=== PATIENT | female | born 1975 | race Caucasian/White ===

== ENCOUNTER 2022-06-14 15:37 | Outpatient (CLI) | payer OTHER, SELFPAY ==
[2022-06-14 11:29] LABS: Albumin* 4.4 g/dL (3.3-5.0); Chloride* 107 mmol/L (96-114); Sodium* 140 mmol/L (135-149)
[2022-06-14 11:31] LABS: Carbon Dioxide* 26 mmol/L (20-32); Cholesterol* 213 mg/dL (90-199); Creatinine* 0.7 mg/dL (0.5-1.5); Estimated Glomerular Filt Rate 107 ml/min
[2022-06-14 11:32] LABS: Alanine Aminotransferase* 19 U/L (4-35); Alkaline Phosphatase* 63 U/L (40-150); Aspartate Amino Transferase* 24 U/L (12-35); Bilirubin Total* 0.6 mg/dL (0.1-1.5); Blood Urea Nitrogen* 18 mg/dL (5-24); Calcium* 9.5 mg/dL (8.4-10.6); Glucose* 95 mg/dL (60-115); HDL Cholesterol* 44 mg/dL (>=50); LDL Cholesterol Calculated 123 mg/dL (<100); Total Protein* 7.1 g/dL (6.0-8.3); Triglycerides* 232 mg/dL (40-149)
== END 2022-06-14 15:38 | disposition home or self-care (01) ==
PROVIDERS: PCP Family Medicine; Visit Provider Family Medicine
DX: Z13.6 Encounter for screening for cardiovascular disorders (principal); Z13.9 Encounter for screening, unspecified
CPT/HCPCS: 80053; 80061

== ENCOUNTER 2022-07-21 10:41 | Outpatient (CLI) | payer OTHER, SELFPAY ==
[2022-07-21 11:13] LABS: SARS Antigen* negative (Negative)
== END 2022-07-21 10:42 | disposition home or self-care (01) ==
LOC: OP CLINIC 10:43
PROVIDERS: PCP Family Medicine; Visit Provider Surgery
DX: Z12.11 Encounter for screening for malignant neoplasm of colon (principal); K63.5 Polyp of colon; K62.1 Rectal polyp; Z83.71 Family history of colonic polyps
CPT/HCPCS: 45385; 87426; 88305; 99153; J1200; J2250; J3010

== ENCOUNTER 2022-09-22 08:05 | Outpatient (CLI) | payer OTHER, SELFPAY | END 2022-09-22 08:06 | disposition home or self-care (01) | LOC: NFLDREF 18:15 | PROVIDERS: PCP Family Medicine; Referring Provider Family Medicine; Visit Provider Family Medicine | DX: E78.5 Hyperlipidemia, unspecified (principal) | CPT/HCPCS: 80061 ==

== ENCOUNTER 2023-08-28 10:46 | Outpatient (CLI) | payer OTHER, SELFPAY | END 2023-08-28 10:47 | disposition home or self-care (01) | PROVIDERS: PCP Family Medicine; Visit Provider Obstetrics & Gynecology | DX: N39.3 Stress incontinence (female) (male) (principal); E78.2 Mixed hyperlipidemia; R63.5 Abnormal weight gain | CPT/HCPCS: 80061; 84443; 87086 ==

== ENCOUNTER 2023-12-19 09:30 | Outpatient (RCR) | payer OTHER, SELFPAY | END 2024-04-17 23:59 | disposition home or self-care (01) | PROVIDERS: PCP Family Medicine; Visit Provider Obstetrics & Gynecology | DX: N39.3 Stress incontinence (female) (male) (principal); K59.00 Constipation, unspecified; R27.8 Other lack of coordination; Z51.89 Encounter for other specified aftercare | CPT/HCPCS: 97110; 97140; 97162; 97535 ==

== ENCOUNTER 2024-05-24 14:18 | Outpatient (CLI) | payer OTHER, SELFPAY ==
--- OUTSIDE RECORDS SUMMARY | 2024-05-24 14:20 | XMS_ITS | Clinical Summary ---
Author Organization [facility] Address [place], [place] [address] Care Team Providers Care Rooming House Inspector Name Role Phone Tony Terrell MD Unavailable [phone] Rachelle Patel MD Primary Care Provider + Allergies Active Allergy Reactions Criticality Noted Date Comments Adhesive Tape-Silicones Rash Low 07/09/2014 Medications Medication Sig Dispensed Refills Start Date End Date Status ibuprofen (ADVIL; MOTRIN) 600 mg tablet Take 1 tablet by mouth every 6 hours if needed. Maximum of 3200 mg in 24 hours. 50 tablet 0 07/12/2014 Active simvastatin (ZOCOR) 20 mg tablet 01/21/2021 Active Active Problems Problem Noted Date Diagnosed Date Advanced maternal age (AMA) in 015 Previous section complicating 07/07/2014 Sterilization 07/07/2014 Immunizations Name Administration Dates Next Due MMR 07/10/2014 Social History Tobacco Use Types Packs/Day Years Used Date Smoking Tobacco: Never Smokeless Tobacco: Never Tobacco Cessation:Counseling Given: Yes Alcohol Use Standard Drinks/Week Comments No 0 (1 standard drink = 0.6 oz pur e alcohol) Sex and Gender Information Value Date Recorded Sex Assigned at Not on file Gender Identity Not on file Sexual Orientation Not on file Obstetrics History Para Term AB IAB SAB Ectopic Multiple Livin g Live Births 4 3 3 0 1 0 1 0 0 3 3 Date Outcome GA Total Labor Labor/2nd/3rd Weight Sex Type Anes PTL Tsering A1 A5 Name Clin 2006 SAB 2009 Term 41w 0d 3.2 kg (7 lb 1 oz) M C-Sec tion Spinal N Lay terrell Delivery Location:[facility] Comments:NRFA 2010 Term 39w 4d 3.19 kg (7 lb 0.7 oz) M C-Sec tion Spinal N Lay terrell Delivery Location:[facility] Comments:breech 2014 Term 39w 2d 2.81 kg (6 lb 3 oz) F C-Sec tion Spinal N Lay g 7 9 BALLS TADT, BG(HE ATHER ) terrell Delivery Location:[facility] Last Filed Vital Signs Vital Sign Reading Time Taken Comments Blood Pressure 145/91 02/16/2022 9:28 AM CDT tow er Pulse 73 02/16/2022 9:28 AM CDT Temperature 36.8 C (98.2 F) 07/12/2014 7:00 AM ELECTROCARDIOGRAM TECHNICIAN Respiratory Rate 16 07/12/2014 7:00 AM ELECTROCARDIOGRAM TECHNICIAN Oxygen Saturation 98% 02/16/2022 9:28 AM CDT Inhaled Oxygen Concentration - - Weight 99.8 kg (220 lb) 02/16/2022 9:28 AM CDT Height 167.6 cm (5' 5.98) 07/09/2014 6:00 AM CS T Body Mass Index 35.53 07/09/2014 6:00 AM ELECTROCARDIOGRAM TECHNICIAN Plan of Treatment Health Maintenance Due Date Last Done Comments Tdap 1984 Depression screening for age 12+ 1985 HIV for age 15-65 1988 BMI (ht and wt on same day) for age 18+ 1991 Hepatitis C screening for ag e 18-79 1991 Tetanus booster 1993 Colonoscopy through age 75 2018 Lipids for age 45-75 2018 Mammogram for age 45-75 2018 Pap test for age 21-65 03/03/2023 0, 03/03/2020 Zoster (shingles) series for age 50+ (1 of 2) 2023 COVID-19 vaccine series (2023- season) 2024 05/14/2021, 09/23/2020, 08/25/2020 Influenza for age 50-64 02/25/2024 Pneumococcal series for age 6-64 Aged Out No longer eligible b ased on patient's age to complete this topic Procedures Procedure Name Priority Date/Time Associated Diagnosis Comments LONG WALL MINING MACHINE TENDER THIN PREP PAP SCREEN IMAGED Routine 03/03/2020 5:45 PM CDT from Last 3 Months or Most Recently Relevant to Health Maintenance Results * LONG WALL MINING MACHINE TENDER THIN PREP PAP SCREEN IMAGED (03/03/2020 5:45 PM CDT) Case Report Gynecologic Cytology Report Case: [id number] Authorizing Provider: Archana Mcgarry PA-C Collected: 03/03/2020 [id number] Ordering Location: [facility] Received: 03/05/2020 0911 First Screen: Perla Perez Specimen: LONG WALL MINING MACHINE TENDER ThinPrep Vial Screening, Cervical/Vaginal 03/12/2020 9:06 AM CDT [facility] INTERPRETATION/ RESULT NEGATIVE FOR INTRAEPITHELIAL LESION OR MALIGNANCY (NIL) (none) 03/12/2020 9:06 AM CDT [facility] IMEN ADEQUACY Satisfactory for evaluation Endocervical component present 03/12/2020 9:06 AM CDT [facility] HPV REQUEST HPV and PAP 03/12/2020 9:06 AM CDT [facility] Date of LMP 02/26/2020 03/12/2020 9:06 AM CDT [facility] Last Pap Date 03/12/2020 9:06 AM CDT [facility] Comment:2018 Last Pap Result NIL 0 9:06 AM CDT [facility] Additional Information 03/12/2020 9:06 AM CDT [facility] Comment: Interpreted at [facility] - [address], [place] [address] Automated Review Successful 03/12/2020 9:06 AM CDT [facility] Comment:Specimen processed s uccessfully by automated collections clerk device, ThinPrep Imaging System, [employer] ANCILLARY TESTING LONG WALL MINING MACHINE TENDER HPV Ordered, Please see separate report 03/12/2020 9:06 AM CDT [facility] Note The pap test is a screening technique, not a diagnostic procedure. It is used primarily to screen for squamous cancers and precursor lesions. Published studies have shown that it is subject to both false negative and false positive results. The pap test should not be used as the sole means to diagnose or exclude pre-malignant and malignant lesions. 03/12/2020 9:06 AM CDT [facility] Other (Cervical/Vagina l) 03/03/2020 5:45 PM CDT 03/05/2020 9:11 AM CDT [facility] [address] [facility] [address] [place] [address], from Last 3 Months or Most Recently Relevant to Health Maintenance Advance Directives * Full Code (Latest Code Status on File) Date Activated Date Inactivated Comments 07/09/2014 6:08 AM 07/09/2014 9:45 AM Care Teams Rooming House Inspector Relationship Specialty Start Date End Date Rachelle Patel MD [address] [place] [address] PCP - General Family Practice 05/27/21 [place] [address] Obstetrics and Gynecology 07/08/14
--- NOTE | 2024-05-24 14:40 | CRLHL7_ITS ---
For Patients: As a result of the Century Cures Act, medical imaging exams and procedure reports are released immediately into your electronic medical record. You may view this report before your referring provider. If you have questions, please contact your health care provider. BILATERAL SCREENING MAMMOGRAM WITH COMPUTER-AIDED DETECTION AND TOMOSYNTHESIS TECHNIQUE: CC and MLO views were obtained. These mammographic images have been obtained using full-field digital technique. These mammographic images were interpreted with the benefit of computer-aided detection. Breast Tomosynthesis was used in this interpretation. COMPARISON FILM: 12/02/22, 02/18/21, 02/05/20. FINDINGS: The breasts are heterogeneously dense, which may obscure small masses. IMPRESSION: There is no radiographic evidence for malignancy. ASSESSMENT: BI-RADS Category 1: Negative RECOMMENDATION: Routine screening mammogram in 1 year. A lay language report of this examination will be provided to the patient. Kevyn Coats M.D. Diagnostic Radiologist [email or web address] SP/Dictated by: Kevyn Coats MD @ 05/29/2024 11:16:00 AM (Electronically Signed)
== END 2024-05-24 14:19 | disposition home or self-care (01) ==
LOC: MAMMO 14:18
PROVIDERS: PCP Family Medicine; Visit Provider Family Medicine
DX: Z12.31 Encounter for screening mammogram for malignant neoplasm of breast (principal); R92.333 Mammographic heterogeneous density, bilateral breasts
CPT/HCPCS: 77063; 77067

== ENCOUNTER 2024-08-09 08:04 | Outpatient (CLI) | payer OTHER, SELFPAY | END 2024-08-09 08:05 | disposition home or self-care (01) | LOC: NFLDREF 08-10 03:23 | PROVIDERS: PCP Family Medicine; Referring Provider Family Medicine; Visit Provider Family Medicine | DX: E78.2 Mixed hyperlipidemia (principal); I10 Essential (primary) hypertension | CPT/HCPCS: 80048; 80061; 84460 ==

== ENCOUNTER 2025-06-17 19:08 | Outpatient (CLI) | payer OTHER, SELFPAY ==
--- NOTE | 2025-06-17 19:20 | CRLHL7_ITS ---
For Patients: As a result of the Century Cures Act, medical imaging exams and procedure reports are released immediately into your electronic medical record. You may view this report before your referring provider. If you have questions, please contact your health care provider. INDICATION: BILATERAL SCREENING MAMMOGRAM, ASYMPTOMATIC 49 Y/O FEMALE COMPARISON: 05/24/2024, 12/02/2022, 02/18/2021 TECHNIQUE: Digital mammogram in CC and MLO projections including computer-aided detection (CAD) and tomosynthesis. BREAST COMPOSITION: There are scattered areas of fibroglandular density. FINDINGS: No suspicious findings. ASSESSMENT: BI-RADS 1 Negative RECOMMENDATION: Annual screening mammogram. A lay language report of this examination will be provided to the patient. Dictated by: Zita Landrum MD @ 06/19/2025 07:46:05 (Electronically Signed)
== END 2025-06-17 19:09 | disposition home or self-care (01) ==
PROVIDERS: PCP Family Medicine; Visit Provider Family Medicine
DX: Z12.31 Encounter for screening mammogram for malignant neoplasm of breast (principal)
CPT/HCPCS: 77063; 77067